=== PATIENT | male | born 1965 | race Caucasian/White ===

== ENCOUNTER 2022-04-24 20:57 | Outpatient (CLI) | payer OTHER, SELFPAY | END 2022-04-24 20:58 | disposition home or self-care (01) | PROVIDERS: PCP Family Medicine; Visit Provider Internal Medicine | DX: G47.33 Obstructive sleep apnea (adult) (pediatric) (principal) | CPT/HCPCS: 95811 ==

== ENCOUNTER 2024-01-06 12:39 | Outpatient (CLI) | payer OTHER, SELFPAY | END 2024-01-06 12:40 | disposition home or self-care (01) | LOC: INJ CL 12:41 | PROVIDERS: PCP Family Medicine; Visit Provider Family Medicine | DX: M54.16 Radiculopathy, lumbar region (principal); M51.36 Other intervertebral disc degeneration, lumbar region | CPT/HCPCS: 62323; J0702; Q9966 ==

== ENCOUNTER 2025-02-08 08:14 | Outpatient (CLI) | payer BC, SELFPAY | END 2025-02-08 08:15 | disposition home or self-care (01) | LOC: INJ CL 08:16 | PROVIDERS: PCP Family Medicine; Visit Provider Family Medicine | DX: M54.16 Radiculopathy, lumbar region (principal); M51.369 Other intervertebral disc degeneration, lumbar region without mention of lumbar back pain or lower extremity pain | CPT/HCPCS: 62323; J0702; Q9966 ==